=== PATIENT | female | born 1970 | race Caucasian/White ===

== ENCOUNTER → 2017-09-17 | Outpatient (CLI) | payer OTHER | LOC: COL.RAD 08:53 | DX: M25.551 Pain in right hip (principal) | CPT/HCPCS: G0260; J3301 ==

== ENCOUNTER → 2017-12-16 | Outpatient (CLI) | payer OTHER | LOC: COL.RAD 14:01 | DX: M85.68 Other cyst of bone, other site (principal); M94.9 Disorder of cartilage, unspecified | CPT/HCPCS: A9585; J3301; Q9967 ==

== ENCOUNTER → 2020-03-04 | Outpatient (CLI) | payer OTHER | LOC: COL.RAD 11:59 | DX: M71.22 Synovial cyst of popliteal space [Baker], left knee (principal); M67.854 Other specified disorders of tendon, left hip ==